=== PATIENT | male | born 1965 | race Caucasian/White ===

== ENCOUNTER 2019-12-23 14:46 | Inpatient (IN) | payer BC, MEDICAID ==
[2019-12-23 17:16] LABS: Appearance,Urine Clear (Clear); Bilirubin,Urine Negative (Negative); Blood,Urine Negative (Negative); Color,Urine Yellow; Glucose,Urine (UA) Negative (Negative); Ketones,Urine Negative (Negative); Leukocyte Esterase,Urine Trace (Negative); Nitrite,Urine Negative (Negative); PH, Urine 6.5 (5.0-8.0); Protein,Urine Negative (Negative); RBC,Urine <1 /hpf (0-5); Specific Gravity,Urine 1.008 (1.001-1.035); Urobilinogen,Urine <2.0 mg/dL (<2.0); WBC,Urine 4 /hpf (0-5)
[2019-12-23 17:26] LABS: Amphetamine Screen,Urine Not Detected (NotDetected); Barbiturate Screen,Urine Not Detected (NotDetected); Benzodiazepines Screen,Urine Not Detected (NotDetected); Cocaine Screen,Urine Not Detected (NotDetected); Methadone Screen, Urine Not Detected (NotDetected); Opiate Screen,Urine Not Detected (NotDetected); Oxycodone Screen, Urine Not Detected (NotDetected); Phencyclidine Screen,Urine Not Detected (NotDetected); Tricyclic Antidepressant,Urine Not Detected (NotDetected); Urn Cannabinoid Scrn Detected (NotDetected)
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
[2019-12-24] MEDS ORDERED: LORazepam 1 MG TAB PO PRN (03:12)
[2019-12-24] MEDS ORDERED: ACETAMINOPHEN TAB 325 MG TAB PO PRN (03:12)
[2019-12-24] MEDS ORDERED: ZIPRASIDONE 20 MG VIAL IM PRN (03:12)
[2019-12-24] MEDS ORDERED: MAG HYDROX/AL HYDROX/SIMETH 30 ML CUP PO PRN (03:12)
[2019-12-24] MEDS ORDERED: MAGNESIUM HYDROXIDE 2,400 MG/10 ML CUP PO PRN (03:12)
[2019-12-24] MEDS ORDERED: LORazepam 2 MG/ML INJ IM PRN (03:17)
--- NOTE | 2019-12-24 05:06 | P.MDCNMH ---
History of Present Illness H&P Date: 12/24/19 Chief Complaint: medical evaluation 54-year-old male with bipolar disorder and depression Patient comes in petitioned by his due to aggressive behavior and threatening his in-laws. Patient has not been taking his medications. Patient reports that he was misunderstood. He reports occasional suicidal ideation. Patient feels that the medications make some zombie so he refuses to take them. He feels depressed and hopeless. Otherwise he denies any physical complaints at this time denies any fevers chills headache nausea vomiting chest pain trouble breathing abdominal pain. Review of Systems Pertinent positives as noted in HPI. All other systems were reviewed and are negative Past Medical History Past Medical History: No Reported History History of Any Multi-Drug Resistant Organisms: None Reported Past Surgical History: No Surgical Hx Reported Past Psychological History: Bipolar, Depression Smoking Status: Current every day smoker Past Alcohol Use History: Occasional Past Drug Use History: Marijuana - Past Family History family Family Medical History: No Reported History Medications and Allergies Allergies Allergy/AdvReac Type Severity Reaction Status Date / Time No Known Allergies Allergy Verified 12/23/19 15:05 Physical Exam Vitals: Vital Signs Temp Pulse Pulse Resp BP BP Pulse Ox 12/24/19 03:54 97.8 F 58 L 16 128/82 98 12/24/19 03:16 97.6 F 77 19 173/93 98 12/23/19 18:30 80 16 147/82 99 12/23/19 15:00 98.1 F 57 L 18 165/86 99 Intake and Output 12/23/19 12/23/19 12/24/19 14:59 22:59 06:59 Other: Weight 83.915 kg 80.513 kg Constitutional: No acute distress, conversant, pleasant Eyes: Anicteric sclerae, moist conjunctiva, no lid-lag Pupils equal round reactive to light ENMT: NC/AT Oropharynx clear, no erythema, exudates Neck: Supple, FROM, no masses, or JVD No carotid bruits No thyromegaly Lungs: Clear to auscultation Clear to percussion Normal respiratory effort, no accessory muscle use Cardiovascular: Heart regular in rate and rhythm, No murmurs, gallops, or rubs No peripheral edema Abdominal: Soft Nontender, no guarding, rebound or rigidity Abdomen moving with respiration Normoactive bowel sounds No hepatomegaly, No splenomegaly No palpable mass No abdominal wall hernia noted Skin: Normal temperature, tone, texture, turgor No induration No subcutaneous nodules No rash, lesions No ulcers Extremities: No digital cyanosis No clubbing Pedal pulses intact and symmetrical Radial pulses intact and symmetrical No calf tenderness Psychiatric: Alert and oriented to person, place and time depressed affect poor judgement Neuro Muscles Strength 5/5 in all 4 extremities Sensation to light touch grossly present throughout Cranial nerves II-XII grossly intact No focal sensory deficits Lymphatics: no palpable cervical or supraclavicular , or inguinal lymph nodes Cranial Nerve Examination - Cranial Nerves Cranial Nerve II- Optic: Intact Cranial Nerve III- Oculomotor: Intact Cranial Nerve IV- Trochlear: Intact Cranial Nerve V- Trigeminal: Intact Cranial Nerve - Abducens: Intact Cranial Nerve VII- Facial: Intact Cranial Nerve VIII- Auditory: Intact Cranial Nerve IX- Glossopharyngeal: Intact Cranial Nerve X- Vagus: Intact Cranial Nerve XI- Accessory: Intact Cranial Nerve XII- Hypoglossal: Intact Results Labs: Abnormal Lab Results - Last 24 Hours (Table) 12/23/19 Range/Units Unknown Ur Leukocyte Esterase Trace H (Negative) U Marijuana (THC) Screen Detected H (NotDetected) Assessment and Plan Assessment: 54 year old male with bipolar disorder, comes in due to violent behavior , petitioned by his , patient has not been taking his medications. currently has no medical complaints bipolar diosrder violent behavior depression suicidal ideation management per psych low risk for dvt, patient ambulatory Thank you for allowing us to participate in the care of this patient. We will follow peripherally. Do not hesitate to contact us with questions. Someone can be reached from the [facility] hospitalist group at all hours of the day at [phone].
[2019-12-24 08:18] LABS: ALT 26 U/L (4-49); AST 33 U/L (17-59); African American GFR (CKD) >90 (>60 ml/min/1.73 sqM); Albumin 4.2 g/dL (3.5-5.0); Alkaline Phosphatase 94 U/L (38-126); Anion Gap 5 mmol/L; Blood Urea Nitrogen 11 mg/dL (9-20); Carbon Dioxide 25 mmol/L (22-30); Chloride 107 mmol/L (98-107); Cholesterol 163 mg/dL (<200); Glucose 96 mg/dL (74-99); HDL Cholesterol 67 mg/dL (40-60); LDL Cholesterol,Calculated 88 mg/dL (0-99); Non-African American GFR(CKD) >90 (>60 ml/min/1.73 sqM); Potassium 4.5 mmol/L (3.5-5.1); Sodium 137 mmol/L (137-145); Total Bilirubin 0.6 mg/dL (0.2-1.3); Triglycerides 41 mg/dL (<150)
[2019-12-24 08:19] LABS: Basophils % (A) 1 %; Eosinophils # (A) 0.1 k/uL (0-0.7); Eosinophils % (A) 2 %; Lymphocytes # (A) 1.2 k/uL (1.0-4.8); Lymphocytes % (A) 23 %; MCH 30.1 pg (25.0-35.0); MCHC 32.6 g/dL (31.0-37.0); MCV 92.1 fL (80.0-100.0); Mean Platelet Volume 8.1; Monocytes # (A) 0.4 k/uL (0-1.0); Monocytes % (A) 7 %; Neutrophils # (A) 3.6 k/uL (1.3-7.7); Neutrophils % (A) 66 %; Platelet Count 256 k/uL (150-450); RBC 5.32 m/uL (4.30-5.90); RDW 13.6 % (11.5-15.5); WBC 5.5 k/uL (3.8-10.6)
[2019-12-24] MEDS: NICOTINE 14MG/24HR PATCH TRANSDERM SCH (10:34)
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
[2019-12-24 14:04] LABS: Hemoglobin A1C 5.6 % (4.0-6.0)
[2019-12-25] MEDS: NICOTINE 14MG/24HR PATCH TRANSDERM SCH (10:13)
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
[2019-12-26] MEDS: NICOTINE 14MG/24HR PATCH TRANSDERM SCH (10:03)
--- NOTE | 2019-12-26 14:10 | P.PN ---
Progress Note - Text Progress Note Date: 12/26/19 Clinical Problems: Bipolar disorder most recent episode hypomanic, rule out cannabis use disorder Interim history: I reviewed the medical record, interviewed the patient and discuss his treatment and treatment plan during team meeting. I also left a message to speak with his . He was irritable and hyperverbal. He perseverated about the circumstances that led to this hospitalization. He explained the admission as a misunderstanding of his otherwise reasonable actions. He believes that his is unfaithful and presented weak circumstantial evidence to support this belief. He also talked about his as a "germaphobic" and controlling. He confronted me when I suggested treatment with medication and demand explanation of the medical profession's involvement in the oxycodone abuse scandal. The group therapist stated that he was disruptive during group therapy. Mental status exam: He presented as a casually groomed 54-year-old male who was pleasant on approach. He made eye contact and appeared to attend to interview. He had no distinguishing features or prominent physical abnormalities. He had a labile facial expression. He was not restless or agitated and showed no abnormal involuntary movements. Her speech was spontaneous, pressured and consistent with his mood. His affect was elevated and irritable. He did not express suicidal ideation or wishes. He denied homicidal ideation. He expresses feelings of helplessness regarding this hospi talization but denied hopelessness or worthlessness. He ruminated about the circumstances that this hospitalization. He expressed ideas of reference and paranoid ideation. His thinking was concrete. Associations were coherent and logical. He did not demonstrate clang associations or neologisms. He denied hallucinations did not appear to be responding to internal stimuli. Assessment: He has several signs and symptoms of hypomania including pressured speech, flight of ideas, increase in goal-directed activities. There is no evidence of involvement in activities with a high potential pH consequences such as sexual indiscretions or fourth business interventions. Collateral information would help determine whether he had spending indiscretions. Plan: Continue inpatient treatment. Proceed with involuntary hospitalization. Continue discussion of a mood stabilizer such as Lamictal, Abilify, Latuda or lithium. Obtain collateral information from . Ativan and/or Geodon for agitation or aggression. Evaluate clinical status response to treatment daily basis. Encourage participation in therapeutic groups and activities.
[2019-12-27] MEDS: NICOTINE 14MG/24HR PATCH TRANSDERM SCH (08:59)
[2019-12-27] MEDS: lamoTRIgine 25 MG TAB PO SCH (12:41)
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
[2019-12-28] MEDS: lamoTRIgine 25 MG TAB PO SCH (09:22)
[2019-12-28] MEDS: NICOTINE 14MG/24HR PATCH TRANSDERM SCH (09:23)
--- NOTE | 2019-12-28 13:21 | P.PN ---
Progress Note - Text Progress Note Date: 12/28/19 Clinical Problems: Bipolar disorder most recent episode hypomanic, cannabis use disorder Interim history: I reviewed the medical record, interviewed the patient and discussed the treatment plan during team meeting. He took a second dose of Lamictal this morning and reported that he is mood has improved. He feels "calmer" and "more in control." He appeared surprised when I explained that the 25 mg doses only initial dose and individual issues needing between 100 to 200 mg per day. He spent much of the session complaining about the involuntary process. He is angry at his for completing a petition and forcing this admission. He complained that his is controlling and believes that this admission her attempt to further control his life. He was defensive and increasingly argumentative when I explained our reasons for this hospitalization. Mental status exam: He presented as an unshaven 54-year-old male who was irritable but controlled. He made eye contact and attended the interview. He had a irritable facial expression. He showed no abnormality of psychomotor activity. His speech was pressured. His affect was guarded and suspicious. He ruminated about the circumstances this hospitalization but did not express clear ideas reference. He continues to believe that his is unfaithful and believes that she is "lying" to him. He did not appear to responding to internal stimuli. Assessment: He appears less irritable than on admission. Plan: Continue inpatient treatment. Continue Lamictal 25 mg daily and titrate gradually to a target dose of 200 mg per day. Consider a trial of Abilify if he is unable to tolerate Lamictal or becomes more paranoid and delusional. Ativan and/or Geodon for agitation or aggression. Evaluate clinical status response to treatment daily basis. Encourage participation in therapeutic groups and activities.
[2019-12-29] MEDS: lamoTRIgine 25 MG TAB PO SCH (08:57)
[2019-12-29] MEDS: NICOTINE 14MG/24HR PATCH TRANSDERM SCH (08:57)
--- NOTE | 2019-12-29 13:20 | P.PN ---
Progress Note - Text Progress Note Date: 12/29/19 Clinical Problems: Bipolar disorder most recent episode hypomanic, cannabis use disorder Interim history: I reviewed the medical record, interviewed the patient and discussed the treatment plan during team meeting. He complained about his roommate and requested a room change. I related this request to nursing staff. He spent much of the session talking about his and their relationship. Again, he portrayed her as the cause of this admission. She described her as dominating and controlling. She believes that he is having an affair, control their finances, difficulty with the keys to his car and blames him for the difficulties that they're having in the relationship. He denied problems with sleep or appetite. He's had no episodes behavioral dyscontrol. Mental status exam: He presented as an unshaven 54-year-old male who was pleasant and cooperative. He made eye contact and attended the interview. He had a bright facial expression. He showed no abnormality of psychomotor activity. His speech was pressured. His affect was stable. He ruminated about the circumstances this hospitalization but did not express clear ideas reference. He continues to believe that his is unfaithful and believes that she is "lying" to him. He did not appear to responding to internal stimuli. Assessment: He is much less irritable on admission but continues to show no insight or understanding of his illness or need for treatment. Plan: Continue inpatient treatment. Continue Lamictal 25 mg daily and titrate gradually to a target dose of 200 mg per day. Consider a trial of Abilify if he is unable to tolerate Lamictal or becomes more paranoid and delusional. Ativan and/or Geodon for agitation or aggression. Evaluate clinical status response to treatment daily basis. Encourage participation in therapeutic groups and activities.
[2019-12-30 07:03] VITALS: BP 154/60; PULSE 100; RESP 17; TEMP 97.3
[2019-12-30] MEDS ORDERED: lamoTRIgine 25 MG TAB PO SCH (09:00)
[2019-12-30] MEDS: NICOTINE 14MG/24HR PATCH TRANSDERM SCH (09:36)
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
[2020-01-02] MEDS ORDERED: lamoTRIgine 100 MG TAB PO SCH (09:00)
== END 2019-12-30 12:40 | disposition home or self-care (01) | DRG 885 ==
LOC: EC 14:46 → 3MHU 12-24 03:05
PROVIDERS: ADMIT Psychiatry & Neurology Psychiatry; ATTEND Psychiatry & Neurology Psychiatry
DX: F31.9 Bipolar disorder, unspecified (principal); R45.851 Suicidal ideations; F12.10 Cannabis abuse, uncomplicated; F17.200 Nicotine dependence, unspecified, uncomplicated; Z63.0 Problems in relationship with spouse or partner
CPT/HCPCS: 80053; 80061; 80306; 81001; 82075; 83036; 84443; 85025; 99285